=== PATIENT | male | born 1985 | race Asian ===

== ENCOUNTER 2022-05-06 09:58 | Day surgery (SDC) | payer BC ==
[~2022-05-06] VITALS: Ht 165.1 cm; Wt 77.1 kg
[2022-05-06] MEDS ORDERED: BUPIVACAINE LIPOSOME/PF 266 MG/20 ML VIAL INFIL ONE (11:02)
[2022-05-06] MEDS ORDERED: ONDANSETRON HCL 4 MG/2 ML VIAL ONE (13:05)
[2022-05-06] MEDS ORDERED: SEVOFLURANE 15 MIN GAS INH ONE (13:05)
[2022-05-06] MEDS ORDERED: PROPOFOL 200MG/ 20ML VIAL (DIPRIVAN) IV ONE (13:05)
[2022-05-06] MEDS ORDERED: LR 500 ML IV.SOLN IV ONE (13:05)
[2022-05-06] MEDS ORDERED: KETOROLAC TROMETHAMINE 30 MG VIAL ONE (13:05)
[2022-05-06] MEDS ORDERED: MIDAZOLAM HCL 5 MG/5 ML VIAL ONE (13:05)
[2022-05-06] MEDS ORDERED: BUPIVACAINE /PF 0.25% 30 ML VIAL INJ ONE (13:05)
[2022-05-06] MEDS ORDERED: KETOROLAC TROMETHAMINE 30 MG VIAL IVP PRN (13:45)
[2022-05-06] MEDS ORDERED: HYDROmorphone 1 MG/ML INJ. CARTRIDGE IVP PRN (13:45)
[2022-05-06] MEDS ORDERED: ONDANSETRON HCL 4 MG/2 ML VIAL IVP PRN (13:45)
[2022-05-06 14:48] VITALS: BP_SYST 126
[2022-05-06] MEDS ORDERED: IBUPROFEN 800 MG TABLET PO SCH (15:00)
== END 2022-05-06 16:20 | disposition home or self-care (01) ==
LOC: SMU 09:58 → SDS 09:58
PROVIDERS: ATTEND Surgery
DX: K60.2 Anal fissure, unspecified (principal); L91.8 Other hypertrophic disorders of the skin; L92.8 Other granulomatous disorders of the skin and subcutaneous tissue; Z20.822 Contact with and (suspected) exposure to COVID-19; Z79.899 Other long term (current) drug therapy; Z98.890 Other specified postprocedural states
CPT/HCPCS: 36415 ×2; 46080; 11200; 88304; 87426; U0003; C9290; J3490; J1885; J2250; J2405; J2704; J7120